=== PATIENT | male | born 1990 | race Caucasian/White ===

== ENCOUNTER 2025-02-02 13:56 | Emergency (ER) | payer MEDICAID, OTHER ==
[~2025-02-02] VITALS: Ht 170.2 cm; Wt 65.8 kg
[2025-02-02] MEDS ORDERED: LIDOCAINE 5% (PATCH) 1 EA PATCH TP ONE (14:29)
[2025-02-02] MEDS ORDERED: KETOROLAC TROMETHAMINE 15 MG/ML VIAL ONE (14:29)
[2025-02-02] MEDS ORDERED: METHOCARBAMOL (500MG) 500 MG TABLET ONE (14:30)
[2025-02-02] MEDS ORDERED: ACETAMINOPHEN 325 MG TABLET ONE (14:30)
[2025-02-02] MEDS: KETOROLAC TROMETHAMINE 15 MG/ML VIAL IM ONE (14:50)
[2025-02-02] MEDS: METHOCARBAMOL (500MG) 500 MG TABLET PO ONE (14:51)
[2025-02-02] MEDS: LIDOCAINE 5% (PATCH) 1 EA PATCH TP SCH (14:54)
[2025-02-02] MEDS: ACETAMINOPHEN 325 MG TABLET PO ONE (14:54)
[2025-02-02] MEDS ORDERED: LIDO30AD10 TP (15:20)
[2025-02-02] MEDS ORDERED: METH-647 PO (15:20)
[2025-02-02] MEDS ORDERED: IBUP-1953 PO (15:20)
[2025-02-02 16:09] VITALS: BP 132/77; TEMP 98; O2SAT 98
== END 2025-02-02 16:09 | disposition home or self-care (01) ==
LOC: ER 14:11
DX: R07.81 Pleurodynia (principal); M54.50 Low back pain, unspecified; V43.52XA Car driver injured in collision with other type car in traffic accident, initial encounter; Y93.89 Activity, other specified; Y92.488 Other paved roadways as the place of occurrence of the external cause; Y99.8 Other external cause status
CPT/HCPCS: 99284; 96372; 71100; J1885